=== PATIENT | male | born 1955 | race African-American/Black ===

== ENCOUNTER 2016-10-09 00:28 | Emergency (ER) | payer SELFPAY ==
[~2016-10-09] VITALS: Ht 193 cm; Wt 127.3 kg
[2016-10-09 02:09] VITALS: BP 190/134
== END 2016-10-09 02:17 | disposition home or self-care (01) ==
LOC: EMS 00:29
DX: R20.2 Paresthesia of skin (principal); R20.0 Anesthesia of skin
CPT/HCPCS: 99281

== ENCOUNTER 2016-12-08 06:56 | Inpatient (IN) | payer MEDICAID ==
[~2016-12-08] VITALS: Ht 193 cm; Wt 133.9 kg
[2016-12-08] MEDS ORDERED: AMLO-511 PO (07:03)
[2016-12-08] MEDS ORDERED: CHL25 PO (07:03)
[2016-12-08 07:12] LABS: GLUCOSE,POINT OF CARE 73 MG/DL (70-110)
[2016-12-08 07:35] LABS: BASOPHILS # (AUTO) 0.01 K/uL (0.00-0.20); BASOPHILS % (AUTO) 0.1 % (0.0-2.0); EOSINOPHILS % (AUTO) 2.42 % (1.0-6.0); HEMATOCRIT 49.8 % (41-53); HEMOGLOBIN 15.2 g/dL (13.5-17.5); LYMPHOCYTES # (AUTO) 1.2 K/uL (1.0-4.8); LYMPHOCYTES % (AUTO) 14.7 % (22.0-44.0); MEAN CORPUSCULAR HEMOGLOBIN 22.5 pg (26.0-34.0); MEAN CORPUSCULAR HGB CONC 30.5 G/dL (31.0-37.0); MEAN CORPUSCULAR VOLUME 74 fL (80-100); MONOCYTES # (AUTO) 0.7 K/uL (0.1-1.0); MONOCYTES % (AUTO) 8.3 % (2.0-9.0); NEUTROPHILS # (AUTO) 6.3 K/uL (1.8-7.7); NEUTROPHILS % (AUTO) 74.4 % (40.0-70.0); PLATELET COUNT (AUTO) 203 K/uL (150-450); RED BLOOD CELL COUNT(AUTO) 6.74 MIL/uL (4.50-5.90); RED CELL DISTRIBUTION WIDTH 14.6 % (11.5-14.5); WHITE BLOOD COUNT (AUTO) 8.4 K/uL (4.5-11.0)
[2016-12-08 07:43] LABS: ANION GAP 5 mmol/L (8-16); CALCIUM, TOTAL 9.5 mg/dL (8.8-10.5); CARBON DIOXIDE 31 mmol/L (22-29); CHLORIDE 102 mmol/L (98-107); CREATININE 1.31 mg/dL (0.60-1.30); GLOMERULAR FILTR. RATE CALC > 60 mL/min (>60); POTASSIUM 4.2 mmol/L (3.5-5.1); SODIUM SERUM 138 mmol/L (136-145); UREA NITROGEN, BLOOD 13 mg/dL (7-18)
[2016-12-08 07:45] LABS: INR 1.1 (0.9-1.1); PROTHROMBIN TIME 11.1 SEC (9.4-11.6)
[2016-12-08 08:07] LABS: ALANINE AMINOTRANSFERASE 29 U/L (12-78); ALBUMIN 3.3 g/dL (3.4-5.0); ASPARTATE AMINOTRANSFERASE 28 U/L (15-37); BILIRUBIN,TOTAL 0.9 mg/dL (0.1-1.0); CREATINE KINASE MB 2.8 ng/mL (0-5); CREATINE KINASE, TOTAL 132 U/L (39-308); TOTAL PROTEIN, SERUM 8.2 g/dL (6.4-8.2)
[2016-12-08 08:36] LABS: B-TYPE NATRIURETIC PEPTIDE 75 pg/mL (0-100)
[2016-12-08] MEDS ORDERED: SODIUM CHLORIDE 0.9% 1,000 ML IV ONE ×2 (09:00→11:00)
[2016-12-08] MEDS ORDERED: ASPIRIN 81 MG CHEWABLE TABLET PO ONE (09:00)
[2016-12-08 09:22] LABS: ADD UA MICROSCOPIC NO; APPEARANCE,URINE CLEAR (CLEAR); GLUCOSE, URINE (UA) NEGATIVE (NEGATIVE); KETONES,URINE NEGATIVE (NEGATIVE); LEUKOCYTE ESTERASE ,URINE NEGATIVE (NEGATIVE); OCCULT BLOOD,URINE NEGATIVE (NEGATIVE); PROTEIN,URINE NEGATIVE (NEGATIVE)
[2016-12-08] MEDS ORDERED: ACETAMINOPHEN 325 MG TABLET PO PRN ×2 (11:00→20:30)
[2016-12-08] MEDS ORDERED: 0.9% SODIUM CHLORIDE 10 ML SYRINGE IVP PRN (11:00)
[2016-12-08] MEDS ORDERED: ONDANSETRON HCL 4 MG/2 ML VIAL IVP PRN ×2 (11:00→20:30)
[2016-12-08 18:59] VITALS: BP 151/89
[2016-12-08] MEDS ORDERED: BISACODYL 10 MG RECTAL RECTAL SUPPOSITORY PR PRN (20:30)
[2016-12-08] MEDS ORDERED: HYDROCODONE/ACETAMINOPHEN 5-325 MG TABLET PO PRN (20:30)
[2016-12-08] MEDS ORDERED: MAGNESIUM HYDROXIDE SUSPENSION 30 ML UDCUP PO PRN (20:30)
[2016-12-08] MEDS ORDERED: IPRATROPIUM BROMIDE 0.5 MG/2.5 ML NEB SOLUTION NEB PRN (20:30)
[2016-12-08] MEDS ORDERED: ZOLPIDEM TARTRATE 5 MG TABLET PO PRN (20:30)
[2016-12-08] MEDS ORDERED: ALBUTEROL SULFATE 2.5 MG/0.5 ML NEB SOLUTION NEB PRN (20:30)
[2016-12-08] MEDS ORDERED: MORPHINE SULFATE 2 MG/ML SYRINGE IVP PRN (20:30)
[2016-12-08] MEDS: HEPARIN SODIUM,PORCINE 5,000 UNITS/ML VIAL SQ SCH (23:37)
[2016-12-08] MEDS: DOCUSATE SODIUM 100 MG CAPSULE PO SCH (23:38)
[2016-12-08 23:56] VITALS: BP 123/88
[2016-12-09 04:48] VITALS: BP 149/79
[2016-12-09 06:52] LABS: BASOPHILS % (AUTO) 0.3 % (0.0-2.0); EOSINOPHILS % (AUTO) 2.4 % (1.0-6.0); HEMATOCRIT 47.8 % (41-53); HEMOGLOBIN 14.5 g/dL (13.5-17.5); LYMPHOCYTES # (AUTO) 1.5 K/uL (1.0-4.8); LYMPHOCYTES % (AUTO) 17.4 % (22.0-44.0); MEAN CORPUSCULAR HEMOGLOBIN 22.4 pg (26.0-34.0); MEAN CORPUSCULAR HGB CONC 30.3 G/dL (31.0-37.0); MEAN CORPUSCULAR VOLUME 74 fL (80-100); MONOCYTES % (AUTO) 11.1 % (2.0-9.0); NEUTROPHILS # (AUTO) 6.1 K/uL (1.8-7.7); NEUTROPHILS % (AUTO) 68.8 % (40.0-70.0); PLATELET COUNT (AUTO) 188 K/uL (150-450); RED BLOOD CELL COUNT(AUTO) 6.48 MIL/uL (4.50-5.90); RED CELL DISTRIBUTION WIDTH 14.9 % (11.5-14.5); WHITE BLOOD COUNT (AUTO) 8.9 K/uL (4.5-11.0)
[2016-12-09 07:07] VITALS: BP 142/89
[2016-12-09 07:12] LABS: ALANINE AMINOTRANSFERASE 24 U/L (12-78); ANION GAP 9 mmol/L (8-16); ASPARTATE AMINOTRANSFERASE 20 U/L (15-37); BILIRUBIN,TOTAL 0.9 mg/dL (0.1-1.0); CALCIUM, TOTAL 9.3 mg/dL (8.8-10.5); CARBON DIOXIDE 26 mmol/L (22-29); CHLORIDE 102 mmol/L (98-107); CREATININE 1.16 mg/dL (0.60-1.30); GLOMERULAR FILTR. RATE CALC > 60 mL/min (>60); POTASSIUM 3.8 mmol/L (3.5-5.1); SODIUM SERUM 137 mmol/L (136-145); TOTAL PROTEIN, SERUM 7.7 g/dL (6.4-8.2); UREA NITROGEN, BLOOD 14 mg/dL (7-18)
[2016-12-09] MEDS: PANTOPRAZOLE SODIUM 40 MG/VIAL IVP SCH (09:06)
[2016-12-09] MEDS: DOCUSATE SODIUM 100 MG CAPSULE PO SCH ×2 (09:06→20:11)
[2016-12-09] MEDS: ASPIRIN 81 MG EC TABLET PO SCH (09:07)
[2016-12-09] MEDS: HEPARIN SODIUM,PORCINE 5,000 UNITS/ML VIAL SQ SCH ×2 (09:08→17:55)
[2016-12-09 11:03] VITALS: BP 149/82
[2016-12-09 15:35] VITALS: BP 138/95
[2016-12-09 19:27] VITALS: BP 126/87
[2016-12-09 23:17] VITALS: BP 139/95
[2016-12-10 04:41] VITALS: BP 118/82
[2016-12-10 07:16] VITALS: BP 126/82
[2016-12-10] MEDS: HEPARIN SODIUM,PORCINE 5,000 UNITS/ML VIAL SQ SCH ×4 (08:16→23:59)
[2016-12-10] MEDS: DOCUSATE SODIUM 100 MG CAPSULE PO SCH ×2 (08:16→20:28)
[2016-12-10] MEDS: PANTOPRAZOLE SODIUM 40 MG/VIAL IVP SCH (08:16)
[2016-12-10] MEDS: ASPIRIN 81 MG EC TABLET PO SCH (08:16)
[2016-12-10] MEDS ORDERED: GADOBUTROL 1 MMOL/ML 10 ML VIAL IVP ONE (08:35)
[2016-12-10 11:34] VITALS: BP 132/76
[2016-12-10 15:13] VITALS: BP 118/61
[2016-12-10] MEDS ORDERED: SODIUM CHLORIDE 0.9% 100 ML ONE (19:31)
[2016-12-10] MEDS ORDERED: IOVERSOL 350 MG/ML 150 ML VIAL ONE (19:32)
[2016-12-10] MEDS ORDERED: BARIUM SULFATE 0.1% SUSPENSION 450 ML BOTTLE ONE (19:32)
[2016-12-10 19:40] VITALS: BP 134/86
[2016-12-10 23:34] VITALS: BP 123/90
[2016-12-11 04:36] VITALS: BP 136/93
[2016-12-11 07:49] VITALS: BP 152/88
[2016-12-11] MEDS: ASPIRIN 81 MG EC TABLET PO SCH (09:39)
[2016-12-11] MEDS: PANTOPRAZOLE SODIUM 40 MG/VIAL IVP SCH (09:39)
[2016-12-11] MEDS: HEPARIN SODIUM,PORCINE 5,000 UNITS/ML VIAL SQ SCH ×3 (09:39→23:39)
[2016-12-11] MEDS: DOCUSATE SODIUM 100 MG CAPSULE PO SCH ×2 (09:39→20:21)
[2016-12-11 11:05] VITALS: BP 120/83
[2016-12-11 15:20] VITALS: BP 133/94
[2016-12-11] MEDS ORDERED: SODIUM CHLORIDE 0.9% 100 ML ONE (18:40)
[2016-12-11] MEDS ORDERED: IOVERSOL 350 MG/ML 150 ML VIAL ONE (18:40)
[2016-12-11 19:22] LABS: HEMOGLOBIN A1C 6.3 % (4.5-6.2)
[2016-12-11 19:34] LABS: CHOL/HDL RATIO 6.4 (4.2-7.3); THYROID STIMULATING HORMONE 3.9 uIU/mL (0.36-3.74)
[2016-12-11 19:42] VITALS: BP 143/81
[2016-12-12 00:10] VITALS: BP 138/86
[2016-12-12 04:36] VITALS: BP 136/89
[2016-12-12 07:29] VITALS: BP 140/97
[2016-12-12] MEDS ORDERED: ASPIRIN 81 MG CHEWABLE TABLET PO SCH (09:00)
[2016-12-12] MEDS: PANTOPRAZOLE SODIUM 40 MG/VIAL IVP SCH (09:58)
[2016-12-12] MEDS: HEPARIN SODIUM,PORCINE 5,000 UNITS/ML VIAL SQ SCH (09:58)
[2016-12-12] MEDS: DOCUSATE SODIUM 100 MG CAPSULE PO SCH (09:58)
[2016-12-12 11:22] VITALS: BP 153/92
[2016-12-12 15:17] VITALS: BP 147/96
[2016-12-12] MEDS ORDERED: SIMV-259 PO (15:44)
[2016-12-12] MEDS ORDERED: ASPI-1093 PO (15:44)
[2016-12-12] MEDS ORDERED: CLOP75 PO (15:45)
== END 2016-12-12 16:35 | disposition home or self-care (01) | DRG 45 ==
LOC: EMS 06:57 → 5N 17:51 → 5S 12-09 05:02 → 5N 12-09 05:02
PROVIDERS: ADMIT Hospitalist; ATTEND Hospitalist
DX: I63.9 Cerebral infarction, unspecified (principal); E44.0 Moderate protein-calorie malnutrition; I66.02 Occlusion and stenosis of left middle cerebral artery; I65.23 Occlusion and stenosis of bilateral carotid arteries; J44.9 Chronic obstructive pulmonary disease, unspecified; E78.5 Hyperlipidemia, unspecified; I10 Essential (primary) hypertension; Z79.899 Other long term (current) drug therapy; Z86.73 Personal history of transient ischemic attack (TIA), and cerebral infarction without residual deficits; Z82.49 Family history of ischemic heart disease and other diseases of the circulatory system
CPT/HCPCS: 70450; 70498; 70544; 70553; 71260; 72193; 74160; 82962; 83036; 84443; 93005; 93306; 93880; 96360; 96361; 99285; A9585; C9113; J1644; J7030; J7050

== ENCOUNTER 2016-12-22 18:51 | Inpatient (IN) | payer MEDICAID ==
[~2016-12-22] VITALS: Ht 193 cm; Wt 128.0 kg
[~2016-12-22 18:51] MED LIST: AMLO-511 PO; ASPI-1093 PO; CHL25 PO; CLOP75 PO; SIMV-259 PO
[2016-12-22 19:55] LABS: BASOPHILS % (AUTO) 0.3 % (0.0-2.0); EOSINOPHILS % (AUTO) 3.6 % (1.0-6.0); HEMATOCRIT 47.9 % (41-53); HEMOGLOBIN 14.4 g/dL (13.5-17.5); LYMPHOCYTES # (AUTO) 1.3 K/uL (1.0-4.8); MEAN CORPUSCULAR HEMOGLOBIN 22.1 pg (26.0-34.0); MEAN CORPUSCULAR HGB CONC 30.1 G/dL (31.0-37.0); MEAN CORPUSCULAR VOLUME 73 fL (80-100); MONOCYTES % (AUTO) 13.4 % (2.0-9.0); NEUTROPHILS # (AUTO) 4.7 K/uL (1.8-7.7); NEUTROPHILS % (AUTO) 64.7 % (40.0-70.0); PLATELET COUNT (AUTO) 235 K/uL (150-450); RED BLOOD CELL COUNT(AUTO) 6.53 MIL/uL (4.50-5.90); RED CELL DISTRIBUTION WIDTH 14.1 % (11.5-14.5); WHITE BLOOD COUNT (AUTO) 7.2 K/uL (4.5-11.0)
[2016-12-22 20:22] LABS: LACTIC ACID 0.8 mmol/L (0.4-2.0)
[2016-12-22 20:26] LABS: ANION GAP 8 mmol/L (8-16); CALCIUM, TOTAL 9.4 mg/dL (8.8-10.5); CARBON DIOXIDE 25 mmol/L (22-29); CHLORIDE 94 mmol/L (98-107); CREATININE 1.29 mg/dL (0.60-1.30); GLOMERULAR FILTR. RATE CALC > 60 mL/min (>60); POTASSIUM 3.6 mmol/L (3.5-5.1); SODIUM SERUM 127 mmol/L (136-145); UREA NITROGEN, BLOOD 16 mg/dL (7-18)
[2016-12-22 20:36] LABS: RBC MORPHOLOGY COMMENT ABNORMAL RBC MORPH
[2016-12-22 20:38] LABS: APPEARANCE,URINE CLEAR (CLEAR); GLUCOSE, URINE (UA) NEGATIVE (NEGATIVE); KETONES,URINE NEGATIVE (NEGATIVE); LEUKOCYTE ESTERASE ,URINE NEGATIVE (NEGATIVE); OCCULT BLOOD,URINE NEGATIVE (NEGATIVE); PH,URINE 6.5 (5.0-8.0); PROTEIN,URINE NEGATIVE (NEGATIVE); RBC,URINE 0-2 /HPF (0-2); WBC,URINE None Seen /HPF (0-5)
[2016-12-22 20:38] LABS: B-TYPE NATRIURETIC PEPTIDE 23 pg/mL (0-100)
[2016-12-22 20:50] LABS: ALANINE AMINOTRANSFERASE 41 U/L (12-78); ALBUMIN 3.5 g/dL (3.4-5.0); ASPARTATE AMINOTRANSFERASE 28 U/L (15-37); BILIRUBIN,TOTAL 0.6 mg/dL (0.1-1.0); CREATINE KINASE MB 2.1 ng/mL (0-5); CREATINE KINASE, TOTAL 107 U/L (39-308); TOTAL PROTEIN, SERUM 8.1 g/dL (6.4-8.2)
[2016-12-22] MEDS ORDERED: SODIUM CHLORIDE 0.9% 1,000 ML IV ONE (21:45)
[2016-12-22] MEDS ORDERED: ACETAMINOPHEN 325 MG TABLET PO PRN (21:45)
[2016-12-22] MEDS ORDERED: OxyCODONE HCL/ACETAMINOPHEN 5-325 MG TABLET PO PRN (21:45)
[2016-12-22] MEDS ORDERED: MAGNESIUM HYDROXIDE SUSPENSION 30 ML UDCUP PO PRN (21:45)
[2016-12-22] MEDS: SIMVASTATIN 20 MG TABLET PO SCH (22:00)
[2016-12-22] MEDS ORDERED: NITROGLYCERIN 2% (1 GM=INCH) PACKET TP ONE (22:15)
[2016-12-22] MEDS ORDERED: ASPIRIN 81 MG CHEWABLE TABLET PO ONE (22:15)
[2016-12-23] MEDS: HEPARIN SODIUM,PORCINE 5,000 UNITS/ML VIAL SQ SCH ×3 (01:06→16:41)
[2016-12-23 06:34] LABS: ANION GAP 9 mmol/L (8-16); CALCIUM, TOTAL 9.4 mg/dL (8.8-10.5); CARBON DIOXIDE 25 mmol/L (22-29); CHLORIDE 96 mmol/L (98-107); CREATININE 1.24 mg/dL (0.60-1.30); GLOMERULAR FILTR. RATE CALC > 60 mL/min (>60); POTASSIUM 3.6 mmol/L (3.5-5.1); SODIUM SERUM 130 mmol/L (136-145); UREA NITROGEN, BLOOD 16 mg/dL (7-18)
[2016-12-23] MEDS: ASPIRIN 81 MG CHEWABLE TABLET PO SCH (08:41)
[2016-12-23] MEDS: PANTOPRAZOLE SODIUM 40 MG DR TABLET PO SCH (08:41)
[2016-12-23] MEDS: CLOPIDOGREL BISULFATE 75 MG TABLET PO SCH (08:41)
[2016-12-23] MEDS: DOCUSATE SODIUM 100 MG CAPSULE PO SCH ×2 (08:41→20:54)
[2016-12-23 15:46] VITALS: BP 119/86
[2016-12-23 19:40] VITALS: BP 140/94
[2016-12-23] MEDS: SIMVASTATIN 20 MG TABLET PO SCH (20:57)
[2016-12-23 23:52] VITALS: BP 124/89
[2016-12-24] MEDS: HEPARIN SODIUM,PORCINE 5,000 UNITS/ML VIAL SQ SCH ×4 (00:42→23:14)
[2016-12-24 04:21] VITALS: BP 132/84
[2016-12-24 08:13] VITALS: BP 126/90
[2016-12-24] MEDS: PANTOPRAZOLE SODIUM 40 MG DR TABLET PO SCH (08:18)
[2016-12-24] MEDS: CLOPIDOGREL BISULFATE 75 MG TABLET PO SCH (08:19)
[2016-12-24] MEDS: DOCUSATE SODIUM 100 MG CAPSULE PO SCH ×2 (08:20→20:02)
[2016-12-24] MEDS: ASPIRIN 81 MG CHEWABLE TABLET PO SCH (08:20)
[2016-12-24 11:27] VITALS: BP 144/88
[2016-12-24 15:34] VITALS: BP 133/57
[2016-12-24 19:49] VITALS: BP 130/91
[2016-12-24] MEDS: SIMVASTATIN 20 MG TABLET PO SCH (20:03)
[2016-12-24 23:31] VITALS: BP 132/89
[2016-12-25 04:36] VITALS: BP 130/95
[2016-12-25 07:17] VITALS: BP 121/93
[2016-12-25] MEDS: CLOPIDOGREL BISULFATE 75 MG TABLET PO SCH (08:39)
[2016-12-25] MEDS: DOCUSATE SODIUM 100 MG CAPSULE PO SCH ×2 (08:39→20:28)
[2016-12-25] MEDS: PANTOPRAZOLE SODIUM 40 MG DR TABLET PO SCH (08:39)
[2016-12-25] MEDS: HEPARIN SODIUM,PORCINE 5,000 UNITS/ML VIAL SQ SCH ×3 (08:39→23:16)
[2016-12-25] MEDS: ASPIRIN 81 MG CHEWABLE TABLET PO SCH (08:40)
[2016-12-25 11:07] VITALS: BP 137/95
[2016-12-25 15:44] VITALS: BP 156/85
[2016-12-25 20:00] VITALS: BP 136/96
[2016-12-25] MEDS: SIMVASTATIN 20 MG TABLET PO SCH (20:28)
[2016-12-25 23:43] VITALS: BP 128/88
[2016-12-26 04:28] VITALS: BP 142/92
[2016-12-26 07:37] VITALS: BP 113/88
[2016-12-26] MEDS: HEPARIN SODIUM,PORCINE 5,000 UNITS/ML VIAL SQ SCH ×3 (08:13→23:15)
[2016-12-26] MEDS: CLOPIDOGREL BISULFATE 75 MG TABLET PO SCH (08:13)
[2016-12-26] MEDS: ASPIRIN 81 MG CHEWABLE TABLET PO SCH (08:13)
[2016-12-26] MEDS: DOCUSATE SODIUM 100 MG CAPSULE PO SCH ×2 (08:13→20:01)
[2016-12-26] MEDS: PANTOPRAZOLE SODIUM 40 MG DR TABLET PO SCH (08:14)
[2016-12-26 11:29] VITALS: BP 121/74
[2016-12-26 15:41] VITALS: BP 132/82
[2016-12-26 19:41] VITALS: BP 125/83
[2016-12-26] MEDS: SIMVASTATIN 20 MG TABLET PO SCH (20:01)
[2016-12-26 23:41] VITALS: BP 123/84
[2016-12-27 04:15] VITALS: BP 132/93
[2016-12-27 07:24] VITALS: BP 112/75
[2016-12-27] MEDS: CLOPIDOGREL BISULFATE 75 MG TABLET PO SCH (08:09)
[2016-12-27] MEDS: PANTOPRAZOLE SODIUM 40 MG DR TABLET PO SCH (08:10)
[2016-12-27] MEDS: ASPIRIN 81 MG CHEWABLE TABLET PO SCH (08:10)
[2016-12-27] MEDS: DOCUSATE SODIUM 100 MG CAPSULE PO SCH (08:10)
[2016-12-27] MEDS: HEPARIN SODIUM,PORCINE 5,000 UNITS/ML VIAL SQ SCH (08:11)
[2016-12-27 11:28] VITALS: BP 132/82
== END 2016-12-27 13:35 | disposition home or self-care (01) | DRG 425 ==
LOC: EMS 18:52 → 5S 12-23 13:51
PROVIDERS: ADMIT Internal Medicine; ATTEND Internal Medicine
DX: E87.1 Hypo-osmolality and hyponatremia (principal); I66.02 Occlusion and stenosis of left middle cerebral artery; E44.0 Moderate protein-calorie malnutrition; I10 Essential (primary) hypertension; E66.9 Obesity, unspecified; I44.0 Atrioventricular block, first degree; I44.7 Left bundle-branch block, unspecified; I66.22 Occlusion and stenosis of left posterior cerebral artery; I65.03 Occlusion and stenosis of bilateral vertebral arteries; Z79.899 Other long term (current) drug therapy; Z79.02 Long term (current) use of antithrombotics/antiplatelets; Z79.82 Long term (current) use of aspirin; Z68.34 Body mass index [BMI] 34.0-34.9, adult; Z86.73 Personal history of transient ischemic attack (TIA), and cerebral infarction without residual deficits; Z82.49 Family history of ischemic heart disease and other diseases of the circulatory system; Z82.3 Family history of stroke
CPT/HCPCS: 70450; 83605; 87081; 93005; 96360; 96361; 99285; G0480; J1644; J7030

== ENCOUNTER 2019-10-17 11:33 | Emergency (ER) | payer MEDICAID, MEDICARE ==
[~2019-10-17] VITALS: Ht 193 cm; Wt 136.4 kg
[~2019-10-17 11:33] MED LIST changes: -AMLO-511 PO; +AMLO5TAB9 PO; -ASPI-1093 PO; +ASPI-1111 PO; -CLOP75 PO; +CLOP75TA3 PO
[2019-10-17] MEDS ORDERED: ATOR20TA86 PO (11:38)
[2019-10-17] MEDS ORDERED: MULT80TA PO (11:38)
[2019-10-17 12:55] VITALS: BP 119/75
== END 2019-10-17 13:00 | disposition home or self-care (01) ==
LOC: EMS 11:38
DX: H53.8 Other visual disturbances (principal); I10 Essential (primary) hypertension; Z79.82 Long term (current) use of aspirin; Z79.899 Other long term (current) drug therapy

== ENCOUNTER 2019-10-22 12:05 | Emergency (ER) | payer MEDICARE ==
[~2019-10-22] VITALS: Ht 193 cm; Wt 150.0 kg
[~2019-10-22 12:05] MED LIST changes: +ATOR20TA86 PO; -CHL25 PO; -CLOP75TA3 PO; +MULT80TA PO; -SIMV-259 PO
[2019-10-22 12:50] LABS: BASOPHILS % (AUTO) 0.9 % (0.0-2.0); EOSINOPHILS % (AUTO) 3.3 % (1.0-6.0); HEMATOCRIT 48.5 % (41-53); HEMOGLOBIN 14.9 g/dL (13.5-17.5); LYMPHOCYTES # (AUTO) 1.2 K/uL (1.0-4.8); MEAN CORPUSCULAR HEMOGLOBIN 22.9 pg (26.0-34.0); MEAN CORPUSCULAR HGB CONC 30.8 G/dL (31.0-37.0); MEAN CORPUSCULAR VOLUME 75 fL (80-100); MONOCYTES # (AUTO) 0.6 K/uL (0.1-1.0); NEUTROPHILS % (AUTO) 65.8 % (40.0-70.0); PLATELET COUNT (AUTO) 170 K/uL (150-450); RED CELL DISTRIBUTION WIDTH 14.1 % (11.5-14.5)
[2019-10-22 12:58] LABS: INR 1.1 (0.9-1.1); PROTHROMBIN TIME 11.1 SEC (9.4-11.6)
[2019-10-22 13:05] LABS: ANION GAP 5 mmol/L (8-16); CALCIUM, TOTAL 9.7 mg/dL (8.8-10.5); CARBON DIOXIDE 31 mmol/L (22-29); CHLORIDE 105 mmol/L (98-107); CREATININE 1.24 mg/dL (0.60-1.30); GLOMERULAR FILTR. RATE CALC > 60 mL/min (>60); GLUCOSE,RANDOM 106 mg/dL (70-110); POTASSIUM 3.9 mmol/L (3.5-5.1); SODIUM SERUM 141 mmol/L (136-145); UREA NITROGEN, BLOOD 12 mg/dL (7-18)
[2019-10-22 13:18] LABS: B-TYPE NATRIURETIC PEPTIDE 68 pg/mL (0-100)
[2019-10-22 13:29] LABS: APPEARANCE,URINE CLEAR (CLEAR); BILIRUBIN,URINE NEGATIVE (NEGATIVE); GLUCOSE, URINE (UA) NEGATIVE (NEGATIVE); KETONES,URINE NEGATIVE (NEGATIVE); LEUKOCYTE ESTERASE ,URINE NEGATIVE (NEGATIVE); NITRATE,URINE NEGATIVE (NEGATIVE); OCCULT BLOOD,URINE NEGATIVE (NEGATIVE); PROTEIN,URINE NEGATIVE (NEGATIVE)
[2019-10-22 13:32] LABS: ALANINE AMINOTRANSFERASE 32 U/L (12-78); ALBUMIN 3.5 g/dL (3.4-5.0); ALKALINE PHOSPHATASE 98 U/L (46-116); ASPARTATE AMINOTRANSFERASE 23 U/L (15-37); BILIRUBIN,TOTAL 0.6 mg/dL (0.1-1.0); CREATINE KINASE, TOTAL ONLY 119 U/L (39-308); TOTAL PROTEIN, SERUM 7.6 g/dL (6.4-8.2)
[2019-10-22 13:45] LABS: PATHOLOGY REVIEW, DIFF NO
[2019-10-22] MEDS ORDERED: ASPIRIN 325 MG TABLET PO ONE (14:45)
[2019-10-22 17:42] VITALS: BP 155/101
== END 2019-10-22 18:15 | disposition short-term general hospital (02) ==
LOC: EMS 12:06
DX: G45.9 Transient cerebral ischemic attack, unspecified (principal); R79.89 Other specified abnormal findings of blood chemistry; I10 Essential (primary) hypertension
CPT/HCPCS: 70450; 93005